=== PATIENT | female | born 1995 | race African-American/Black ===

== ENCOUNTER 2017-12-07 05:20 | Emergency (ER) | payer MEDICAID ==
[~2017-12-07] VITALS: Ht 165.1 cm; Wt 55.0 kg
[2017-12-07 08:24] VITALS: BP 122/67
== END 2017-12-07 08:26 | disposition home or self-care (01) ==
LOC: ER 08:05
DX: N76.0 Acute vaginitis (principal); B37.3 Candidiasis of vulva and vagina; F12.10 Cannabis abuse, uncomplicated
CPT/HCPCS: 99283; Z7610